=== PATIENT | male | born 1955 | race Caucasian/White ===

== ENCOUNTER 2017-09-17 22:08 | Emergency (ER) | payer OTHER | END 2017-09-17 23:00 | disposition home or self-care (01) | LOC: SCSER 22:08 | DX: S60.132A Contusion of left middle finger with damage to nail, initial encounter (principal); I10 Essential (primary) hypertension; W23.0XXA Caught, crushed, jammed, or pinched between moving objects, initial encounter | CPT/HCPCS: 11740 ==

== ENCOUNTER 2017-11-22 12:20 | Outpatient (CLI) | payer OTHER ==
--- NOTE | 2017-11-22 12:48 | RAD ---
SINGLE VIEW ABDOMEN: HISTORY: Kidney stone. Follow-up exam. COMPARISON: CT abdomen and pelvis from 05/24/2016. FINDINGS: A single view of the abdomen shows a nonspecific, nonobstructed bowel gas pattern. No obvious calcif ications are seen projecting over either renal shadow or along the course of the ureters. IMPRESSION: No urinary collecting system or calcifications identified. POS: [facility]
== END 2017-11-22 12:21 | disposition home or self-care (01) ==
LOC: SCSRAD 12:20
PROVIDERS: ATTEND Urology
DX: N20.0 Calculus of kidney (principal)
CPT/HCPCS: 36415; 74018; 80048; 84153